=== PATIENT | male | born 1985 | race African-American/Black ===

== ENCOUNTER 2023-05-02 12:06 | Emergency (ER) | payer MEDICARE ==
[~2023-05-02] VITALS: Ht 180 cm; Wt 140.0 kg
--- NOTE | 2023-05-02 12:30 | ED GU-Male ---
General Chief Complaint: - Reproductive Stated Complaint: STD TEST Nursing Triage Note: PT STATES WOULD LIKE TO GET TESTED FOR STD'S. PT DENIES BEING SYMPTOMATIC, STATES SOMEONE CALLED HIM TODAY ACCUSING HIM OF HAVING STD. Source: patient Exam Limitations: no limitations History of Present Illness Date Seen by Provider: May 02, 2023 Time Seen by Provider: 12:22 Initial Comments Patient is a 38-year-old male who presents to the emergency room with a chief complaint of concern for sexually transmitted infection. He has recently been with a much younger female who called him this morning and told him that he had given her a sexually transmitted infection. She will not answer as to what type of infection. He is strongly suspicious that this is attention seeking behavior but she is quite an active alcoholic and he cannot be sure. He states that he is not having any dysuria, urgency or frequency. He is urinating normally. D enies any genital wounds, ulcers or sores. No itching. No nausea vomiting, no fever. HIs last contact with her was last thursday. (curiously we did notify a female patient this morning of a positive syphilis test and I advised her to call sexual partners and notify them. He will not disclose the young ladies name). Timing/Duration: other (Became concerned today) Prior Genitourinary Problems: none Sexual [place] History: single partner Associated Symptoms: denies symptoms Allergies and Home Medications Allergies Coded Allergies: lithium (Verified Allergy, Unknown, 05/02/23) risperidone (Verified Allergy, Unknown, 05/02/23) Patient Home Medication List Home Medication List Reviewed: Yes Review of Systems Review of Systems Constitutional: see HPI Respiratory: no symptoms reported Cardiovascular: no symptoms reported Gastrointestinal: no symptoms reported Genitourinary: no symptoms reported Skin: no symptoms reported Past Ittastl-Tjzmwn-Sxntou Hx Patient Social History Tobacco Use?: Yes Tobacco type used: Cigarettes Use of E-Cig and/or Vaping dev: Yes E-Cig or Vaping type used: Nicotine Use of E-Cig and/or Vaping [place]: Current Everyday User Substance use?: No Alcohol Use?: No Pt feels they are or have been: No Immunizations Up To Date First/Initial COVID19 Vaccinat: YES Second COVID19 Vaccination Dl: YES Past Medical History Surgery/Hospitalization HX: DENIES MEDICAL HX Physical Exam Vital Signs Vital Signs - First Documented 05/02/23 12:15 Temp 36.8 Pulse 89 Resp 18 B/P (MAP) 126/91 (103) Pulse Ox 99 Capillary Refill : Less Than 3 Seconds Height, Weight, BMI Height: '" Weight: lbs. oz. kg; 43.00 BMI Method: General Appearance: WD/WN, no apparent distress, obese HEENT: PERRL/EOMI Respiratory: lungs clear, no respiratory distress, no accessory muscle use Male: other (deferred) Extremities: normal range of motion Neurologic/Psychiatric: alert, normal mood/affect, oriented x 3 Skin: normal color, warm/dry Progress/Results/Core Measures Suspected Sepsis SIRS Temperature: Pulse: 89 Respiratory Rate: 18 Blood Pressure 126 /91 Mean: 103 Results/Orders My Orders Orders - SHANTE GROSS MD Syphilis Antibody Screen (05/02/23 12:40) Vital Signs/I&O 05/02/23 12:15 Temp 36.8 Pulse 89 Resp 18 B/P (MAP) 126/91 (103) Pulse Ox 99 Capillary Refill : Less Than 3 Seconds Blood Pressure Mean: 103 Progress Note : Time: 12:48 Progress Note Patient seen and evaluated by me. Eval today includes physical exam. Patient's exam is unremarkable for any acute findings. exam is deferred as the patient stated he had no concerns for rashes, lesions, sores to genitals. ddx based on H&P includes STI with concern for syphilis Patient provided a urine sample and also blood was drawn for syphilis antibody screen. He is asymptomatic and therefore no treatment was provided here in the ER. He was provided return precautions and advised that we will be contacting him about his lab results. Departure Impression Primary Impression: Concern about STD in male without diagnosis Disposition: 01 HOME, SELF-CARE Condition: Stable Departure-Patient Inst. Decision time for Depature: 12:45 Referrals: [facility] (PCP/Family) Primary Care Physician Patient Instructions: Screening for sexually transmitted infections Add. Discharge Instructions: Make sure you are always using condoms to protect yourself against sexually transmitted diseases. If you develop any burning with peeing, sores on or around your penis, please return to the Emergency Department for re-evaluation. We will contact you if any of your tests come back with a concern for sexually transmitted infection. It will be 3 or 4 days in all likelihood. Copy Copies To 1: GIOVANNI LEVY KATHRYN M MD May 02, 2023 12:30
[2023-05-02 13:21] VITALS: BP 126/91
[2023-05-04] MEDS ORDERED: DOXY100T2 PO (16:13)
== END 2023-05-02 13:21 | disposition home or self-care (01) ==
LOC: ER 12:11
DX: Z11.3 Encounter for screening for infections with a predominantly sexual mode of transmission (principal); F17.210 Nicotine dependence, cigarettes, uncomplicated; F17.290 Nicotine dependence, other tobacco product, uncomplicated
CPT/HCPCS: 36415; 86780; 87491; 87591; 99282